=== PATIENT | female | born 1995 | race Caucasian/White ===

== ENCOUNTER → 2019-07-17 | Emergency (ER) | payer MEDICAID ==
[~2019-07-17] VITALS: Ht 165.1 cm; Wt 106.8 kg
[~2019-07-17] MED LIST: TETanus/Pertussis (Acell)/Diphther VAC/PF (Tdap-Adult) 0.5ml syringe IMVAC ONE
[2019-07-17 16:53] VITALS: BP 141/85
== END | disposition home or self-care (01) ==
LOC: ER 16:21
DX: S01.81XA Laceration without foreign body of other part of head, initial encounter (principal); W11.XXXA Fall on and from ladder, initial encounter; Y93.89 Activity, other specified; Y92.89 Other specified places as the place of occurrence of the external cause; Y99.8 Other external cause status
CPT/HCPCS: 90471; 90715; 99283

== ENCOUNTER 2019-09-21 18:12 | Emergency (ER) | payer MEDICAID, OTHER ==
[~2019-09-21] VITALS: Ht 165.1 cm; Wt 104.0 kg
[2019-09-21 22:54] VITALS: BP 129/87
[2019-09-21] MEDS ORDERED: HYDR-3965 PO (23:09)
== END 2019-09-21 23:16 | disposition home or self-care (01) ==
LOC: ER 18:15
DX: S92.352A Displaced fracture of fifth metatarsal bone, left foot, initial encounter for closed fracture (principal); Z91.040 Latex allergy status; Z79.899 Other long term (current) drug therapy; W22.8XXA Striking against or struck by other objects, initial encounter; Y93.39 Activity, other involving climbing, rappelling and jumping off; Y92.89 Other specified places as the place of occurrence of the external cause; Y99.0 Civilian activity done for income or pay
CPT/HCPCS: 29505; 73610; 73630; 99284